=== PATIENT | female | born 1990 | race Caucasian/White ===

== ENCOUNTER 2021-12-03 14:13 | Outpatient (CLI) | payer BC ==
[2021-12-03 16:37] LABS: Basophils % (Auto) 0.6 % (0.0-1.8); Eosinophils # (Auto) 0.1 K/mm3 (0.0-0.4); Eosinophils % (Auto) 1.4 % (0.0-4.3); Hematocrit 41.6 % (30.3-42.9); Hemoglobin 14.2 gm/dl (10.1-14.3); Lymphocytes # (Auto) 2.3 K/mm3 (1.2-5.4); Lymphocytes % (Auto) 28.6 % (13.4-35.0); Mean Corpuscular HGB Conc 34 % (30-34); Mean Corpuscular Volume 92 fl (79-97); Monocytes # (Auto) 0.6 K/mm3 (0.0-0.8); Monocytes % (Auto) 7.4 % (0.0-7.3); Platelet Count 312 K/mm3 (140-440); Red Blood Count 4.52 M/mm3 (3.65-5.03); Red Cell Distribution Width 13.1 % (13.2-15.2)
[2021-12-03 17:03] LABS: Alanine Aminotransferase 23 units/L (7-56); Albumin 4.7 g/dL (3.9-5); BUN/Creatinine Ratio 15; Blood Urea Nitrogen 9 mg/dL (7-17); Chol/HDL Ratio 2.96 %; HDL Cholesterol 57 mg/dL (40-59); Hemolysis Index 7; LDL Cholesterol,Direct 106 mg/dL (50-130)
[2021-12-08 14:19] LABS: Vitamin D, 25-OH, D2 <4 ng/mL
== END 2021-12-03 14:14 | disposition home or self-care (01) ==
LOC: LABHHL 14:13
PROVIDERS: ATTEND Internal Medicine
DX: Z00.00 Encounter for general adult medical examination without abnormal findings (principal); E04.1 Nontoxic single thyroid nodule; R53.83 Other fatigue; E55.9 Vitamin D deficiency, unspecified
CPT/HCPCS: 36415; 71046; 80053; 80061; 82306; 84439; 84443; 85025

== ENCOUNTER 2021-12-03 14:41 | Outpatient (CLI) | payer BC ==
--- NOTE | 2021-12-03 15:44 | XRay Report ---
CHEST 2 VIEWS INDICATION / CLINICAL INFORMATION: M54.9 DORSALGIA,UNSPECIFIED. COMPARISON: None available. FINDINGS: SUPPORT DEVICES: None. HEART / MEDIASTINUM: No significant abnormality. LUNGS / PLEURA: No significant pulmonary or pleural abnormality. No pneumothorax. ADDITIONAL FINDINGS: There is mild accentuated thoracic kyphosis but no acute fracture or compression deformity is detected. IMPRESSION: 1. Unremarkable chest films. Signer Name: Carson Ramires Jr, MD Signed: 12/03/2021 3:40 PM Workstation Name: [id number]
== END 2021-12-03 14:42 | disposition home or self-care (01) ==
LOC: XRAY 14:41
PROVIDERS: ATTEND Internal Medicine
DX: M54.9 Dorsalgia, unspecified (principal)
CPT/HCPCS: 71046

== ENCOUNTER 2021-12-23 14:07 | Outpatient (CLI) | payer BC ==
--- NOTE | 2021-12-23 17:09 | Ultrasound Report ---
ULTRASOUND THYROID INDICATION / CLINICAL INFORMATION: E04.1 NONTOXIC SINGLE THYROID NODULE. COMPARISON: None available. FINDINGS: RIGHT LOBE: Size (cm) = 5.7 x 2.1 x 1.0 cm. LEFT LOBE: Size (cm) = 5.6 x 1.7 x 0.9 cm. ISTHMUS: Thickness (cm) = 0.2 cm. APPEARANCE: Normal. SMALL NODULES < 1 cm: Subcentimeter cystic nodule in the right mid thyroid lobe measuring 2 mm. Small hypoechoic right isthmus nodule measuring 3 mm without suspicious features. NODULES >= 1 cm or SUSPICIOUS FEATURES (up to 4): None. LYMPH NODES: No abnormal lymph nodes. PARATHYROID GLANDS: No abnormal parathyroid glands. ADDITIONAL FINDINGS: None. IMPRESSION: 1. No suspicious thyroid nodules. 2. No additional abnormality. ACR TI-RADS Thyroid Nodule Recommendations TI-RADS 1 (0 pts) -- BENIGN. - No Fine Needle Aspirate biopsy (FNA) or follow-up. TI-RADS 2 (1-2 pts) -- NOT SUSPICIOUS. - No FNA or follow-up. TI-RADS 3 (3 pts) -- MILDLY SUSPICIOUS. - >= 2.5 cm: FNA. - 1.5-2.4 cm: Follow up at 1, 3, 5 years. - < 1.5 cm: No follow up. TI-RADS 4 (4-6 pts) -- MODERATELY SUSPICIOUS. - >= 1.5 cm: FNA. - 1.0-1.4 cm: Follow up at 1, 2, 3, 5 years. - < 1.0 cm: No follow up. TI-RADS 5 (7+ pts) -- HIGHLY SUSPICIOUS. - >= 1.0 cm: FNA. - 0.5-0.9 cm: Follow annually for 5 years. - 0.5 cm: No follow up. REFERENCE: ACR Thyroid Imaging, Reporting and Data System (TI-RADS): White Paper of the ACR TI-RADS C ommittee. J AM Yenniefr Radiol 2017;14:587-595. NOTE: Nodules < 1 cm do not typically require follow-up or FNA unless there are suspicious features. NOTE: Nodule size maximum dimension determines whether a given lesion should be biopsied or followed. NOTE: If multiple nodules meet criteria for FNA, only the two (2) most suspicious nodules should be b iopsied. In addition, FNA of any suspicious cervical nodes should be biopsied. NOTE: Predominantly Cystic nodules and Spongiform nodules, composed predominantly (>50%) of small cys tic spaces, are considered benign (TI-RADS 1) regardless of other criteria. Scribed by: Taty Askew RDMS, RVT, MAI Scribed: 12/23/2021 2:52 PM I have reviewed the images, agree with this report, and edited this report as needed. Signer Name: Tono Castro MD Signed: 12/23/2021 5:04 PM Workstation Name: [id number]
== END 2021-12-23 14:08 | disposition home or self-care (01) ==
LOC: US 14:07
PROVIDERS: ATTEND Internal Medicine
DX: E04.1 Nontoxic single thyroid nodule (principal)
CPT/HCPCS: 76536